=== PATIENT | female | born 1945 | race Caucasian/White ===

== ENCOUNTER 2018-05-28 12:09 | Day surgery (SDC) | payer MEDICARE, BC ==
[~2018-05-28] VITALS: Ht 170.2 cm; Wt 72.7 kg
[2018-05-28] MEDS ORDERED: MIDAZolam 5mg/5ml vial ONE (12:18)
[2018-05-28] MEDS ORDERED: fentaNYL/PF 50MCG/1 ML 2ML syringe ONE (12:18)
[2018-05-28 12:20] VITALS: BP 148/76
[2018-05-28] MEDS ORDERED: PRAV20TA4 PO (12:35)
[2018-05-28] MEDS ORDERED: MULT-1085 PO (12:35)
[2018-05-28] MEDS ORDERED: OMEG1CAP2 PO (12:36)
[2018-05-28] MEDS ORDERED: CHOL400T14 PO (12:36)
[2018-05-28] MEDS ORDERED: BIFI4CAP PO (12:38)
[2018-05-28] MEDS ORDERED: ondansetron/PF 4mg/2ml inj ONE (13:30)
[2018-05-28 14:57] VITALS: BP 102/61
[2018-05-28 15:04] VITALS: BP 105/61
[2018-05-28 15:14] VITALS: BP 124/74
[2018-05-28 15:24] VITALS: BP 121/89
== END 2018-05-28 15:28 | disposition home or self-care (01) ==
LOC: GI LAB 12:09
PROVIDERS: ATTEND Internal Medicine Gastroenterology
DX: K57.30 Diverticulosis of large intestine without perforation or abscess without bleeding (principal); K62.1 Rectal polyp; K52.9 Noninfective gastroenteritis and colitis, unspecified; I48.91 Unspecified atrial fibrillation; E11.9 Type 2 diabetes mellitus without complications; Z85.41 Personal history of malignant neoplasm of cervix uteri; Z86.73 Personal history of transient ischemic attack (TIA), and cerebral infarction without residual deficits; Z90.710 Acquired absence of both cervix and uterus; Z88.6 Allergy status to analgesic agent; Z98.890 Other specified postprocedural states; Z79.899 Other long term (current) drug therapy
CPT/HCPCS: 45380; G0500; J2250; J2405; J3010; J7030; 88305; 99152; 99153; A4620